=== PATIENT | female | born 1965 | race Caucasian/White ===

== ENCOUNTER 2016-05-17 15:34 | Day surgery (SDC) | payer OTHER ==
[2016-05-17 16:49] LABS: SPECIFIC GRAVITY 1.015 (1.001-1.030); URINE BILIRUBIN NEGATIVE (NEGATIVE); URINE BLOOD 2+ (NEGATIVE); URINE GLUCOSE (UA) NEGATIVE (NEGATIVE); URINE LEUKOCYTE ESTERASE NEGATIVE (NEGATIVE); URINE NITRITE NEGATIVE (NEGATIVE); URINE PROTEIN NEGATIVE (NEGATIVE); URINE UROBILINOGEN NORMAL (0-1 mg/dl)
[2016-05-17 16:51] LABS: URINE COLOR YELLOW
[2016-05-17 16:52] LABS: URINE APPEARANCE CLEAR
[2016-05-17 17:03] LABS: URINE BACTERIA 0; URINE EPITHELIAL CELLS 0 /hpf; URINE RBC 0-3 /hpf; URINE WBC RARE /hpf
[2016-05-17 17:19] LABS: HCG,QUALITATIVE URINE NEGATIVE
[2016-05-17 18:25] LABS: ABSOLUTE NEUTROPHIL COUNT 6.3 K/mm3 (1.8-7.7); BASO # 0.1 K/mm3 (0.0-0.2); BASO % 0.7 % (0.2-1.0); EOS # 0.1 (0.0-0.5); EOS % 1.4 % (0.9-2.9); HEMATOCRIT 39.9 % (37.0-47.0); HEMOGLOBIN 13.4 gm/l (12.0-16.0); IMM NEUT% 0.2 % (0-1); LYMPH # 1.8 (1.0-4.8); LYMPH % 19.3 % (15-45); MEAN CELL VOLUME 89.9 fl (81.0-99.0); MEAN CORPUSCULAR HEMOGLOBIN 30.2 pg (27.0-31.0); MEAN CORPUSCULAR HGB CONC 33.6 g/dl (33.0-37.0); MEAN PLATELET VOLUME 10.2 fl (7.4-10.4); MONO # 0.9 (0.0-0.8); MONO % 9.4 % (4-12); PLATELET COUNT 181 K/mm3 (130-400); RED CELL DISTRIBUTION WIDTH 11.8 % (11.5-14.5)
[2016-05-17] MEDS ORDERED: LACTATED RINGERS 1,000 ML ONE ×3 (18:34→20:23)
[2016-05-17] MEDS ORDERED: MORPHINE SULFATE 4 MG/ML SYRINGE ONE (18:34)
[2016-05-17 18:43] LABS: ALB/GLOB RATIO 1.2 (>1.0); ALBUMIN 4.3 gm/dL (3.5-5.7); CALCIUM 10.3 mg/dL (8.6-10.3)
[2016-05-17 18:44] LABS: TROPONIN I < 0.01 ng/ml (0.0-0.06)
[2016-05-17 18:48] LABS: CKMB ISOENZYME 0.5 ng/ml (0.6-6.3)
--- NOTE | 2016-05-17 18:55 | US ---
ABDOMINAL-LIMITED, ABDOMINAL-LIMITED: 05/17/2016 5:46 PM CLINICAL HISTORY: Right abdominal pain. Patient last ate at 1300 hours.. STUDY: Limited right upper quadrant ultrasound COMPARISON: none FINDINGS: Gallbladder: Appears mildly contracted secondary to ingestion of food at 1300 hours. Wall thickness: Normal Cholelithiasis: none Pericholecystic Fluid: none Sonographic Lee's Sign: negative Bile ducts: Common bile duct measures 2 to 3 mm. Limited visualized Liver and RUQ structures: normal IMPRESSION: Mildly contracted appearance of the gallbladder likely secondary to food consumption earlier today. Exam is otherwise unremarkable. ABDOMINAL-LIMITED, ABDOMINAL-LIMITED HISTORY: Right-sided abdominal pain COMPARISONS: None FINDINGS: Multiple grayscale and color flow images during right lower quadrant ultrasound are obtained. A blind-ending tubular structure is identified in the right lower quadrant. This does not appear to be compressible measuring between 8 to 15 mm in diameter. This has a targetoid morphology. Other findings likely represent a dilated appendix and are worrisome for appendicitis. No focal, drainable fluid collection is identified. IMPRESSION: Findings of possible dilated, noncompressible appendix and appendicitis. Findings were called to Dr. Lundberg at approximately 1850 hours on 05/17/2016.
[2016-05-17] MEDS ORDERED: ERTAPENEM SODIUM 1 G VIAL ONE (19:16)
[2016-05-17] MEDS ORDERED: SODIUM CHLORIDE 0.9% 50 ML IV ONE (19:17)
[2016-05-17] MEDS ORDERED: BUPIVACAINE 0.5% (PRES FREE) 30 ML VIAL ONE (19:42)
[2016-05-17] MEDS ORDERED: LIDOCAINE 1%/EPI 1:100,000 (MULTI DOSE) 30 ML VIAL ONE (19:42)
[2016-05-17] MEDS ORDERED: MIDAZOLAM HCL 1 MG/ML 2ML VIAL ONE (20:13)
[2016-05-17] MEDS ORDERED: FENTANYL 250 MCG/5 ML AMP ONE (20:13)
--- NOTE | 2016-05-17 20:22 | PDOC1 ---
History & Physical: CC: RLQ Pain HPI: 50yo F with RLQ pain. This started 2 days ago as generalized abdominal pain. The pain was constant. Over the last 24 hours, the pain worsened and migrated to the RLQ. The patient denies any recent F/C/NV/CP/SOB, change in bladder fx, constipation , diarrhea, unintentional weight loss, easy bleeding/bruising, or other associated symptoms. REVIEW OF SYSTEMS CONSTITUTIONAL: As per HPI. EARS, NOSE, MOUTH, THROAT: ~No sneezing or runny nose CARDIOVASCULAR: ~As per HPI. RESPIRATORY: ~As per HPI. GASTROINTESTINAL: ~As per HPI. GENITOURINARY: ~As per HPI. NEUROLOGICAL: ~No history of seizures HEMATOLOGIC: ~As per HPI. MUSCULOSKELETAL: ~No change in strength. LYMPHATICS: ~No history of splenectomy. PSYCHIATRIC: ~No change in personality or affect PMH: None PSH: None Meds: None All: NKDA SH: Nonsmoker, denies EtOH FH: No FH of CRC or IBD Physical Exam: General/Constitutional: Vitals documented above, comfortable in NAD Psych: A&O x 3, normal judgment and insight. Recent and remote memory intact. Mood and affect normal. Eyes: Pupils equal, no scleral icterus Ears, Nose, Mouth, Throat: gross hearing intact Neck: Supple Heart: RRR, no LE edema Lungs: Equal rise and fall of chest wall, non-labored breathing, no audible wheezes Neuro: Gross sensation intact Abdomen: Soft, ND, moderate RLQ TTP with voluntary guarding Laboratory 05/17/16 18:05 05/17/16 18:05 Abdominal US (05/17/16): FINDINGS: Gallbladder: Appears mildly contracted secondary to ingestion of food at 1300 hours. Wall thickness: Normal Cholelithiasis: none Pericholecystic Fluid: none Sonographic Lee's Sign: negative Bile ducts: Common bile duct measures 2 to 3 mm. Limited visualized Liver and RUQ structures: normal IMPRESSION: Mildly contracted appearance of the gallbladder likely secondary to food consumption earlier today. Exam is otherwise unremarkable. ABDOMINAL-LIMITED, ABDOMINAL-LIMITED HISTORY: Right-sided abdominal pain COMPARISONS: None FINDINGS: Multiple grayscale and color flow images during right lower quadrant ultrasound are obtained. A blind-ending tubular structure is identified in the right lower quadrant. This does not appear to be compressible measuring between 8 to 15 mm in diameter. This has a targetoid morphology. Other findings likely represent a dilated appendix and are worrisome for appendicitis. No focal, drainable fluid collection is identified. IMPRESSION: Findings of possible dilated, noncompressible appendix and appendicitis. A/P: 50yo F with history, exam, and radiographic findings consistent with early acute appendicitis. Although she has a normal WBC, her history is classic, her exam is convincing, and the US shows a dilated non-compressible blind ending structure in the RLQ. The operation and expected post-operative course were discussed at length. We discussed the risks of the operation to include, but not limited to: bleeding, pain, infection, scar, damage to surrounding structures (small bowel, colon, bladder), failure to improve health, need for additional procedures (to include conversion to open and ileocecectomy), and the risks of anesthesia (heart attack , arrhythmia, stroke, blood clot, and ). The patient understands these risks and agrees to proceed with surgery. The patient was given 1g IV Invanz in the ED. To OR tonight for laparoscopic appendectomy. Moe Rivas MD General Surgeon
[2016-05-17] MEDS ORDERED: PUMP TUBING ONE (20:24)
[2016-05-17] MEDS ORDERED: ROCURONIUM BROMIDE 10 MG/ML DOSE IV ONE (20:26)
[2016-05-17] MEDS ORDERED: ONDANSETRON 4 MG/2ML 2 ML VIAL ONE (20:26)
[2016-05-17] MEDS ORDERED: SUCCINYLCHOLINE CHL 20 MG/ML DOSE ONE (20:26)
[2016-05-17] MEDS ORDERED: PROPOFOL 20 ML IV ONE (20:26)
[2016-05-17] MEDS ORDERED: LIDOCAINE 2% (MULTI DOSE) 10 ML VIAL ONE (20:26)
[2016-05-17] MEDS ORDERED: DEXAMETHASONE SOD PHOS 4 MG/1 ML VIAL ONE (20:26)
[2016-05-17] MEDS ORDERED: ONDANSETRON 4 MG/2ML 2 ML VIAL IV PRN ×2 (20:48→22:06)
[2016-05-17] MEDS ORDERED: ATROPINE SULFATE 0.4 MG/1 ML VIAL IV PRN (20:48)
[2016-05-17] MEDS ORDERED: PROMETHAZINE HCL 25 MG/ML VIAL IM PRN (20:48)
[2016-05-17] MEDS ORDERED: NALOXONE HCL 0.4 MG/ML VIAL IV PRN (20:48)
[2016-05-17] MEDS ORDERED: HYDROMORPHONE HCL 1 MG/ML SYRINGE IV PRN (20:48)
[2016-05-17] MEDS ORDERED: FENTANYL 100 MCG/2 ML VIAL IV PRN (20:48)
[2016-05-17] MEDS ORDERED: MEPERIDINE 25 MG/ML SYRINGE IV PRN (20:48)
[2016-05-17] MEDS ORDERED: NEOSTIGMINE METHYLSULFATE 1 MG/ML DOSE ONE (20:59)
[2016-05-17] MEDS ORDERED: LACTATED RINGERS 1,000 ML IV SCH ×2 (21:00→22:06)
[2016-05-17] MEDS ORDERED: GLYCOPYRROLATE 0.2 MG/ML 1ML VIAL ONE (21:00)
[2016-05-17] MEDS ORDERED: KETOROLAC TROMETHAMINE 30 MG/ML 1 ML VIAL ONE (21:15)
[2016-05-17] MEDS ORDERED: HYDROMORPHONE HCL 2 MG/ML SYRINGE ONE (21:19)
--- NOTE | 2016-05-17 21:34 | PCMON ---
OPERATIVE REPORT Pre-Op Diagnosis: Acute appendicitis Post-Op Diagnosis: Acute suppurative appendicitis Operation: Laparoscopic Appendectomy Surgeon: Angelo Rivas MD Zyglo Inspector: None Anesthesia: GETA Pre-Operative Antibiotics: Invanz Specimen Sent to Lab: Appendix Date of Operation: 17 May 2016 Infection Classification: 3 Estimated Blood Loss: 5mL Indication for Procedure: The patient is a 50 year old female with 2 days of migratory right lower quadrant pain. She has an ultrasound that showed an 8- 15mm non-compressible blind-ending structure in the right lower quadrant. These findings are consistent with acute appendicitis. The plan for today is a laparoscopic appendectomy. Description of Findings: The appendix was suppurative but not perforated. The meso-appendix was elongated requiring 4 staple loads. Detailed Operative Report: The patient was met in the pre-operative holding area by the operating team. All questions and concerns were addressed appropriately. The patient was taken to the operating room where general anesthesia was induced. A Fernández catheter was placed. The abdomen was prepped and draped in the normal sterile fashion. ~ Local anesthetic was injected into the proposed infra-umbilical incision site. The skin was incised. The fascia was elevated and incised. Direct entry into the peritoneum was confirmed. A 12mm~balloon trocar was inserted into the abdomen. The abdomen was insufflated to a pressure of 15mm Hg, which the patient tolerated well. The laparoscope was inserted and the abdomen was inspected. There were no injuries from initial trocar placement. Two additional 5mm trocars were placed in the left lower quadrant and supra-pubic positions. The table was placed in the Trendelenburg position with the right side up. ~ The appendix was readily visible. It appeared inflamed and suppurative, but not perforated. The appendix was grasped and a mesenteric window was created at the base of the appendix. The appendix was divided with a linear cutting stapler using a 45mm blue load. The mesoappendix was elongated and was similarly divided using a four sequential 45mm white loads. The appendix was placed into an endscopic retrieval bag. The right lower quadrant was thoroughly inspected and hemostasis was ensured. ~ Secondary trocars were removed under direct vision. The infra-umbilical trocar was removed along with the specimen and the abdomen was allowed to collapse. The fascia of the infra-umbilical site was closed with 0-Vicryl in a figure of eight fashion. All skin was closed with 4-0 Monocryl. The wounds were dressed with mastisol, ster-strips, and band-aids. The Fernández catheter was removed. The patient was then awakened from anesthesia, extubated, and transferred to the PACU without complication. Prior to closing, all sponge and instrument counts were correct. ANGELO RIVAS MD
[2016-05-17] MEDS ORDERED: MORPHINE SULFATE 2 MG/ML SYRINGE IV PRN (22:06)
[2016-05-18] MEDS: OXYCODONE/ACETAMINOPHEN 5/325 MG TABLET PO PRN ×2 (03:49→05:51)
[2016-05-18 05:02] VITALS: BMI 19.5
[2016-05-18 07:36] VITALS: BP 100/62
--- NOTE | 2016-05-18 10:24 | PDOC43 ---
- Subjective S: Minimal pain, tolerated breakfast, no other issues. O: AFVSS, met DTV Physical Exam: General/Constitutional: Vitals documented above, comfortable in NAD Psych: A&O x 3, normal judgment and insight. Recent and remote memory intact. Mood and affect normal. Eyes: Pupils equal, no scleral icterus Ears, Nose, Mouth, Throat: gross hearing intact Neck: Supple Heart: RRR, no LE edema Lungs: Equal rise and fall of chest wall, non-labored breathing, no audible wheezes Neuro: Gross sensation intact Abdomen: Soft, ND, appropriate incisional TTP, no guarding. Incisions clean and dry covered with steris/band-aids. A/P: 50yo F doing well POD#1 s/p laparoscopic appendectomy, plan for discharge this AM. Moe Rivas MD General Surgeon - Objective Vital Signs Temperature 98.7 F 05/18/16 07:33 Pulse Rate 64 05/18/16 07:33 Respiratory Rate 16 05/18/16 07:33 Blood Pressure 100/62 05/18/16 07:33 O2 Saturation by Pulse Oximetry 97 05/18/16 07:33 Oxygen Delivery Method Room Air Oxygen Flow Rate 0 Laboratory 05/17/16 18:05 05/17/16 18:05 05/17/16 18:05 CK-MB (CK-2) 0.5 L Globulin 3.6 H Intake and Output 05/16/16 05/17/16 05/18/16 23:59 23:59 23:59 Intake Total 1553 Output Total 350 Balance 1203
--- NOTE | 2016-05-18 10:27 | PDOC5 ---
ADMIT DATE: 05/17/16 DISCHARGE DATE: 05/18/16 ADMISSION DIAGNOSES: acute appendicitis PROCEDURES PERFORMED THIS HOSPITALIZATION: laparoscopic appendectomy CONSULTATIONS: general surgery HOSPITAL COURSE: This is a 50 year old who presented with acute appendicitis. She underwent a laparoscopic appendectomy, which she tolerated well. Postoperatively, her pain was well controlled with oral pain medication, she tolerated a regular diet, and ambulated without difficulty. She was discharged home on POD#1 in good condition. - Objective Vital Signs Temperature 98.7 F 05/18/16 07:33 Pulse Rate 64 05/18/16 07:33 Respiratory Rate 16 05/18/16 07:33 Blood Pressure 100/62 05/18/16 07:33 O2 Saturation by Pulse Oximetry 97 05/18/16 07:33 Oxygen Delivery Method Room Air Oxygen Flow Rate 0 - Discharge Plan Disposition: Home Instruction Forms: Appendectomy (Adult) Prescriptions: Naproxen [NAPROSYN 500 MG TABLET (SHF)] 500 mg PO BID #30 tablet Oxycodone HCl/Acetaminophen [PERCOCET 5/325 MG TABLET (SHF)] 1 - 2 tab PO Q4H PRN #20 tab PRN Reason: Pain Polyethylene Glycol 3350 [MIRALAX 17 G PACKET (SHF)] 17 g PO X1 #1 bot
--- NOTE | 2016-05-20 13:44 | SURGPATH ---
[facility] [address] [place] [id number] Patient Name: JANKI MERIDA MR#: [id number] : 1965 Gender: F Specimen #: [id number] Collected: 05/17/2016 Received: 05/19/2016 Reported: 05/20/2016 Submitting Phys: ANGELO DODD Copy To Phys: [facility] Clinical History / Pre-Operative Diagnosis: ACUTE APPENDICITIS Specimen Source / Surgical Procedure Performed: APPENDIX Interpretation: APPENDIX, APPENDECTOMY: - MARKED ACUTE APPENDICITIS AND PERIAPPENDICITIS. - NO EVIDENCE OF MALIGNANCY. Electronically Signed Out Wilian Peña M.D., Ph.D. Gross Description: The specimen is received in a formalin filled container labeled with the patient's name and "appendix". A vermiform appendix is 8.0 x 1 cm. The attached hemorrhagic periappendiceal fat is 3.0 x 1.5 x 1 cm. The serosa is focally hemorrhagic, has attached fibrous adhesions and areas lightly covered with white pacheco fibrinopurulent exudate. The surgical staple line is removed and the adjacent section is inked black and submitted as margin. The lumen is focally patent and contains a small amount of soft hemorrhagic material. There is no nodule or fecalith. Three retail service representative sections are submitted in one cassette including a cross section through the appendiceal surgical margin, a central cross section and a longitudinal section through the tip. Mikayla Kim Microscopic Description: Examination of multiple sections from the appendix shows appendix with a marked acute inflammatory cell infiltrate extending from the lumen through the wall of the appendix into the periappendiceal soft tissue. There is no evidence of malignancy. [id number]: [id number] K35.80
== END 2016-05-18 09:21 | disposition home or self-care (01) ==
LOC: ED 15:34 → SDC 19:02 → MS 22:00 → SDC 05-18 09:21
PROVIDERS: ATTEND Surgery
PROC: 0DTJ4ZZ Resection of Appendix, Percutaneous Endoscopic Approach (ICD-10-PCS; principal; 2016-05-17)
DX: K35.89 Other acute appendicitis (principal)
CPT/HCPCS: 44970; 83690; 81025; 85025; 82553; 80053; 84484; 81001; 76705 ×2; 99285 ×2; 96361; 96365; J1170; J3010; J1100; J2270; A9270 ×2; J1885; J2250; J2001 ×2; J2405; J7120 ×3; J7030; J7050; J1335